=== PATIENT | female | born 1970 | race Caucasian/White ===

== ENCOUNTER 2022-04-12 08:00 | Outpatient (CLI) | payer BC ==
--- NOTE | 2022-04-12 18:28 | XRAY Report ---
PROCEDURE: Hand 3 View RT INDICATIONS: RIGHT HAND PAIN TECHNIQUE: 3 views of the hand(s) acquired. COMPARISON: None FINDINGS: Bones: No fractures or dislocations. No suspicious bony lesions. Mild, generalized degenerative ch anges are seen. Soft tissues: No suspicious soft tissue calcifications. IMPRESSION: Age-appropriate degenerative changes are seen. Reviewed by: Sahil Mahajan MD on 04/12/2022 5:26 PM AKDT Approved by: Sahil Mahajan MD on 04/12/2022 5:26 PM AKDT Station ID: [id number]
== END 2022-04-12 23:59 | disposition home or self-care (01) ==
LOC: DI.S 08:00
PROVIDERS: ATTEND Physician Assistant
DX: M79.641 Pain in right hand (principal)